=== PATIENT | female | born 1995 | race Caucasian/White ===

== ENCOUNTER 2019-06-23 14:33 | Emergency (ER) | payer OTHER ==
[~2019-06-23] VITALS: Ht 162.6 cm; Wt 87.5 kg
[2019-06-29] MEDS ORDERED: PRENATAL TABLE1 EAC2 PO (11:52)
== END 2019-06-23 17:15 | disposition home or self-care (01) ==
LOC: ER 14:33
DX: O03.9 Complete or unspecified spontaneous abortion without complication (principal)
CPT/HCPCS: 36415; 76801; 76817; 84702; 86900; 86901; 99284-25

== ENCOUNTER 2019-06-30 11:20 | Day surgery (SDC) | payer OTHER ==
[~2019-06-30] VITALS: Ht 162.6 cm; Wt 88.2 kg
[~2019-06-30 11:20] MED LIST: PRENATAL TABLE1 EAC2 PO
--- NOTE | 2019-06-30 12:03 | NUR ---
PT ADMITTED TO [facility]. AGREES WITH PLANNED SURGERY. L MALIHA SOUNDS CLEAR.
--- NOTE | 2019-06-30 14:33 | NUR ---
Discharge instructions reviewed with patient. Patient verbalizes understanding. Copy given to patient to take home. Patient States Post-Procedure ride home has been arranged.
--- NOTE | 2019-06-30 14:56 | NUR ---
Discharge instructions reviewed with patient. Patient verbalizes understanding. Copy given to patient to take home. Discharged via wheelchair to private car for ride home. ALL BELONINGS RETURNED TO PATIENT.
== END 2019-06-30 14:56 | disposition home or self-care (01) ==
LOC: ORSCMMR 11:20 → SURS 11:23 → ORSCMMR 12:30 → SURS 14:56
PROVIDERS: Obstetrics & Gynecology
PROC: 10A07Z6 Abortion of Products of Conception, Vacuum, Via Natural or Artificial Opening (ICD-10-PCS; principal; 2019-06-30 12:30)
DX: O03.4 Incomplete spontaneous abortion without complication (principal); E66.9 Obesity, unspecified; Z68.33 Body mass index [BMI] 33.0-33.9, adult
CPT/HCPCS: 88305; A9270-GY; J2250; J2405; J2704; J3010; J7060; J7120

== ENCOUNTER 2019-10-19 17:43 | Emergency (ER) | payer OTHER ==
[~2019-10-19] VITALS: Ht 162.6 cm; Wt 90.7 kg
[2019-10-19 19:00] LABS: BASOPHILS ABSOLUTE AUTO 0.04 K/mm3 (0.00-0.23); BASOPHILS PERCENT AUTO 1 % (0-2); EOSINOPHILS ABSOLUTE AUTO 0.27 K/mm3 (0.00-0.68); EOSINOPHILS PERCENT AUTO 3 % (0-6); Hematocrit 43.4 % (33.0-51.0); Hemoglobin 13.6 g/dL (11.5-16.0); IMMATURE GRAN ABSOLUTE AUTO 0.02 K/mm3 (0.00-0.10); IMMATURE GRAN PERCENT AUTO 0 % (0-1); LYMPHOCYTES ABSOLUTE AUTO 2.11 K/mm3 (0.84-5.20); LYMPHOCYTES PERCENT AUTO 24 % (21-46); MONOCYTES ABSOLUTE AUTO 0.56 K/mm3 (0.16-1.47); MONOCYTES PERCENT AUTO 7 % (4-13); Mean Corpuscular HGB Conc 31.3 g/dL (31.5-36.5); Mean Corpuscular Volume 80 fL (80-100); Mean Platelet Volume 9.8 fL (9.1-12.4); NEUTROPHILS ABSOLUTE AUTO 5.66 K/mm3 (1.96-9.15); NEUTROPHILS PERCENT AUTO 65 % (41-73); Platelet Count 302 K/mm3 (150-400); RDW Coefficient Variation 12.6 % (11.7-14.2); RDW Standard Deviation 35.5 fL (35.1-46.3); Red Blood Cell Count 5.43 M/mm3 (3.80-5.20); White Blood Cell Count 8.66 K/mm3 (4.00-11.30)
[2019-10-19 19:22] LABS: Source, Urine Clean Catch
[2019-10-19 19:25] LABS: Bilirubin, Urine Neg (Neg); Blood, Urine Neg (Neg); Glucose Qualitative, Urine Neg (Neg); Ketones, Urine Neg (Neg); Leukocyte Esterase, Urine Neg (Neg); Nitrite, Urine Neg (Neg); Protein, Urine Neg (Neg); Specific Gravity, Urine 1.005 (1.003-1.022); Urobilinogen, Urine NORM (Normal)
[2019-10-19 19:29] LABS: Appearance, Urine Clear (Clear); Color, Urine Yellow (P-Yellow)
[2019-10-19 19:30] LABS: Alanine Aminotransfer (ALT/SGP 33 U/L (12-78); Albumin, Blood 3.9 g/dL (3.4-5.0); Alk Phos 73 U/L (50-136); Anion Gap 6 mmol/L (6-16); Aspartate Aminotrans (AST/SGOT 35 U/L (12-37); Bilirubin, Total 0.3 mg/dL (0.1-1.0); Blood Urea Nitrogen 13 mg/dL (8-24); Bun/Creatinine Ratio 18.9 (12.0-20.0); CO2, Blood 21 mmol/L (21-32); Calcium, Blood 8.5 mg/dL (8.5-10.1); Chloride, Blood 110 mmol/L (98-108); Creatinine, Blood 0.69 mg/dL (0.40-1.00); Globulin, Blood 4.1 g/dL (2.2-4.0); Glomerular Filtration Rate >60 (60-); Glucose, Blood 91 mg/dL (70-99); Potassium, Blood 4.3 mmol/L (3.5-5.5); Sodium, Blood 137 mmol/L (136-145)
[2019-10-19 19:40] LABS: Beta HCG, Quantitative, Serum 5614 mIU/mL (0-3)
== END 2019-10-19 21:10 | disposition home or self-care (01) ==
LOC: ER 17:43
PROVIDERS: Emergency Medicine; Physician Assistant
DX: O26.851 Spotting complicating pregnancy, first trimester (principal); Z3A.08 8 weeks gestation of pregnancy
CPT/HCPCS: 36415; 76801; 76817; 80053; 81003; 84702; 85025; 86900; 86901; 99284-25

== ENCOUNTER 2021-01-09 18:00 | Inpatient (IN) | payer OTHER ==
[~2021-01-09] VITALS: Ht 157.5 cm; Wt 97.5 kg
[2021-01-09] MEDS ORDERED: FERREX 150150 M1 PO (18:20)
[2021-01-09] MEDS ORDERED: ASPI81CH PO (18:20)
[2021-01-09 18:41] LABS: BASOPHILS ABSOLUTE AUTO 0.02 K/mm3 (0.00-0.23); BASOPHILS PERCENT AUTO 0 % (0-2); EOSINOPHILS ABSOLUTE AUTO 0.11 K/mm3 (0.00-0.68); EOSINOPHILS PERCENT AUTO 1 % (0-6); Hematocrit 37.3 % (33.0-51.0); Hemoglobin 12.3 g/dL (11.5-16.0); IMMATURE GRAN ABSOLUTE AUTO 0.03 K/mm3 (0.00-0.10); IMMATURE GRAN PERCENT AUTO 0 % (0-1); LYMPHOCYTES ABSOLUTE AUTO 1.52 K/mm3 (0.84-5.20); LYMPHOCYTES PERCENT AUTO 16 % (21-46); MONOCYTES ABSOLUTE AUTO 0.49 K/mm3 (0.16-1.47); MONOCYTES PERCENT AUTO 5 % (4-13); Mean Corpuscular HGB 25.6 pg (26.0-34.0); Mean Corpuscular Volume 78 fL (80-100); Mean Platelet Volume 10.8 fL (9.1-12.4); NEUTROPHILS ABSOLUTE AUTO 7.16 K/mm3 (1.96-9.15); NEUTROPHILS PERCENT AUTO 77 % (41-73); Platelet Count 200 K/mm3 (150-400); RDW Coefficient Variation 13.5 % (11.7-14.2); RDW Standard Deviation 38.1 fL (35.1-46.3); White Blood Cell Count 9.33 K/mm3 (4.00-11.30)
[2021-01-11 09:42] LABS: Hematocrit 33.4 % (33.0-51.0); Mean Corpuscular HGB 25.8 pg (26.0-34.0); Mean Corpuscular HGB Conc 32.9 g/dL (31.5-36.5); Mean Corpuscular Volume 78 fL (80-100); Mean Platelet Volume 11.1 fL (9.1-12.4); Platelet Count 178 K/mm3 (150-400); RDW Coefficient Variation 13.6 % (11.7-14.2); RDW Standard Deviation 38.6 fL (35.1-46.3); Red Blood Cell Count 4.27 M/mm3 (3.80-5.20); White Blood Cell Count 9.05 K/mm3 (4.00-11.30)
--- NOTE | 2021-01-11 17:10 | NUR ---
DISCHARGE INSTRUCTIONS, WRITTEN AND VERBAL, GIVEN TO PT AND , [facility]. ANSWERED ALL QUESTIONS AND CONCERNS.
[2021-01-12] MEDS ORDERED: IBUP800 PO (10:29)
--- NOTE | 2021-01-12 10:41 | NUR ---
F/U APPOINTMENT SCHEDULED. PT REFUSED FLU VACCINE. PRESCRIPTIONS CALLED INTO [facility] IN [place]. PT IS DISCHARGED, TO BE DRIVEN HOME BY CASE[facility].
== END 2021-01-12 10:47 | disposition home or self-care (01) | DRG 807 ==
LOC: OBS 18:00 → BC 18:09
PROVIDERS: ADMIT Advanced Practice Midwife
PROC: 3E0P7VZ Introduction of Hormone into Female Reproductive, Via Natural or Artificial Opening (ICD-10-PCS; 2021-01-09)
PROC: 10E0XZZ Delivery of Products of Conception, External Approach (ICD-10-PCS; principal; 2021-01-10)
PROC: 3E033VJ Introduction of Other Hormone into Peripheral Vein, Percutaneous Approach (ICD-10-PCS; 2021-01-10)
PROC: 10907ZC Drainage of Amniotic Fluid, Therapeutic from Products of Conception, Via Natural or Artificial Opening (ICD-10-PCS; 2021-01-10)
PROC: 00HU33Z Insertion of Infusion Device into Spinal Canal, Percutaneous Approach (ICD-10-PCS; 2021-01-10)
PROC: 3E0R3BZ Introduction of Anesthetic Agent into Spinal Canal, Percutaneous Approach (ICD-10-PCS; 2021-01-10)
DX: O24.420 Gestational diabetes mellitus in childbirth, diet controlled (principal); Z37.0 Single live birth; Z3A.39 39 weeks gestation of pregnancy
CPT/HCPCS: 36415; 51702; 82947; 85025; 85027; 86850; 86900; 86901; A9270; J1885; J2210; J2590; J3010; J3430; J7120

== ENCOUNTER 2022-09-14 19:58 | Inpatient (IN) | payer OTHER ==
[~2022-09-14 19:58] MED LIST changes: +ASPI81CH PO; +FERREX 150150 M1 PO; +IBUP800 PO
[2022-09-14] MEDS ORDERED: METF500 PO ×2 (21:19→21:21)
[2022-09-14] MEDS ORDERED: Aspir 8181 MG PO (21:20)
[2022-09-14] MEDS ORDERED: FOLI1 (21:20)
== END 2022-09-16 16:55 | disposition home or self-care (01) | DRG 807 ==
DX: O24.415 Gestational diabetes mellitus in pregnancy, controlled by oral hypoglycemic drugs (principal); Z37.0 Single live birth; Z3A.38 38 weeks gestation of pregnancy; Z67.40 Type O blood, Rh positive; Z79.84 Long term (current) use of oral hypoglycemic drugs

== ENCOUNTER → 2023-04-30 | Outpatient (CLI) | payer OTHER ==
[~2023-04-30] MED LIST changes: +Aspir 8181 MG PO; +FOLI1; +METF500 PO
[2023-04-30 14:39] LABS: BASOPHILS ABSOLUTE AUTO 0.04 K/mm3 (0.00-0.23); BASOPHILS PERCENT AUTO 1 % (0-2); EOSINOPHILS ABSOLUTE AUTO 0.22 K/mm3 (0.00-0.68); EOSINOPHILS PERCENT AUTO 4 % (0-6); Hemoglobin 13.4 g/dL (11.5-16.0); IMMATURE GRAN ABSOLUTE AUTO 0.04 K/mm3 (0.00-0.10); IMMATURE GRAN PERCENT AUTO 1 % (0-1); LYMPHOCYTES ABSOLUTE AUTO 1.75 K/mm3 (0.84-5.20); LYMPHOCYTES PERCENT AUTO 29 % (21-46); MONOCYTES ABSOLUTE AUTO 0.34 K/mm3 (0.16-1.47); MONOCYTES PERCENT AUTO 6 % (4-13); Mean Corpuscular HGB Conc 32.7 g/dL (31.5-36.5); Mean Corpuscular Volume 77 fL (80-100); NEUTROPHILS ABSOLUTE AUTO 3.57 K/mm3 (1.96-9.15); NEUTROPHILS PERCENT AUTO 60 % (41-73); Platelet Count 274 K/mm3 (150-400); RDW Coefficient Variation 13.2 % (11.7-14.2); Red Blood Cell Count 5.36 M/mm3 (3.80-5.20); White Blood Cell Count 5.96 K/mm3 (4.00-11.30)
[2023-04-30 20:00] LABS: Very Low Density Lipoprot Chol 30 mg/dL (6-28)
[2023-04-30 20:06] LABS: Alanine Aminotransfer (ALT/SGP 35 U/L (12-78); Albumin, Blood 4.1 g/dL (3.4-5.0); Albumin/Globulin Ratio 1.1 (0.8-1.8); Alk Phos 73 U/L (50-136); Anion Gap 5 mmol/L (6-16); Aspartate Aminotrans (AST/SGOT 15 U/L (12-37); Bilirubin, Total 0.3 mg/dL (0.1-1.0); Blood Urea Nitrogen 16 mg/dL (8-24); Bun/Creatinine Ratio 21.9 (12.0-20.0); CHOL/HDL RATIO 3.3; CO2, Blood 25 mmol/L (21-32); Calcium, Blood 9.2 mg/dL (8.5-10.1); Chloride, Blood 109 mmol/L (98-108); Cholesterol 170 mg/dL (50-200); Creatinine, Blood 0.73 mg/dL (0.40-1.00); Free Thyroxine 0.91 ng/dL (0.70-1.60); Globulin, Blood 3.6 g/dL (2.2-4.0); Glomerular Filtration Rate 116 (60-); Glucose, Blood 103 mg/dL (70-99); HDL Cholesterol 52 mg/dL (>39); LDL/HDL RATIO 1.7; Low Density Lipoprotein Chol 88 mg/dL (0-110); Potassium, Blood 4.2 mmol/L (3.5-5.5); Sodium, Blood 139 mmol/L (136-145); Thyroid Stimulating Hormone 0.997 uIU/mL (0.360-4.800); Total Protein, Blood 7.7 g/dL (6.4-8.2); Triglycerides 151 mg/dL (30-140)
== END ==
LOC: LAB SHORT 11:45 → LAB 11:45
PROVIDERS: Family Medicine
DX: E66.9 Obesity, unspecified (principal)
CPT/HCPCS: 80053; 80061; 84439; 84443; 84481; 85025